=== PATIENT | female | born 1960 | race Caucasian/White ===

== ENCOUNTER 2016-04-09 01:21 | Day surgery (SDC) | payer OTHER, MEDICARE ==
[~2016-04-09] VITALS: Ht 170.2 cm; Wt 100.0 kg
[~2016-04-09 01:21] MED LIST: ACYC200C PO; ALBU90AE IH; CARV12.52 PO; DOXE2.5C PO; FRSM80T PO; GILDESS FE PO; HYDR-3939 PO; KEN1O TOP; SODI650T PO; VARI1940 SQ; ZYL100 PO
[2016-04-09 07:04] LABS: BASOPHILS % (AUTO) 0.3 % (0-3); EOSINOPHILS % (AUTO) 6.6 % (0-5); MONOCYTES % (AUTO) 8.5 % (4-12); Mean Corpuscular Hemoglobin 30.5 pg (27.0-35.0); Mean Corpuscular Volume 96.1 fL (81-100); NEUTROPHILS % (AUTO) 72.1 % (40-74); Platelet Count 302 bil/L (150-400)
[2016-04-09 07:08] VITALS: BP 123/60; PULSE 76; RESP 18; O2SAT 97
[2016-04-09 07:27] LABS: INR 0.95 ratio
[2016-04-09] MEDS ORDERED: Heparin 1,000 Unit/1,000mL NS Premix IV ONE (08:07)
[2016-04-09] MEDS ORDERED: Heparin 1,000 Unit/mL 10 mL Inj ONE (08:07)
[2016-04-09] MEDS ORDERED: 0.9% Sodium Chloride 500 ML ONE (08:09)
[2016-04-09] MEDS ORDERED: Clindamycin Inj 900 MG in IV Premix 1 EACH IV ONE (08:25)
[2016-04-09] MEDS ORDERED: fentaNYL-PF 50 mCg/mL 2 mL Inj ONE (08:37)
[2016-04-09 09:45] VITALS: BP 126/66; PULSE 78
[2016-04-09 10:00] VITALS: BP 111/95; PULSE 75
[2016-04-09 10:15] VITALS: BP 121/64; PULSE 78
[2016-04-09 10:30] VITALS: BP 125/60; PULSE 75
[2016-04-09 10:45] VITALS: BP 119/54; PULSE 75
--- NOTE | 2016-04-09 14:04 | DRSVH ---
PROCEDURE: ARTERIO VENOUS FISTULOGRAM (PNL) INDICATIONS: Venous dilatation of the right upper extremity. TECHNIQUE: FLUOROSCOPY TIME: 3.9 minutes. 1. Conscious sedation for 60 minutes. 2. Fistulogram at the level of the SVC and reflux fistulogram at the arteriovenous anastomosis. 3. Angioplasty of a focal high-grade stenosis within the midportion of the venous outflow of the righ t upper extremity fistula. 4. Completion fistulogram. The indications, alternatives, benefits, risks, and complications of the procedure were explained to the patient. Informed written consent was obtained and placed in the chart. The patient was brought to the angiography suite, and conscious sedation was administered intravenously by long-term [facility], while continuous cardiorespiratory monitoring was performed. Maximum sterile barrier technique was employed per standard protocol, including hand hygiene, cap, ma sk, sterile gown and gloves, and 2% chlorhexidine. One percent lidocaine was used to anesthetize the skin over the area of interest. Using a micropuncture sheath, the venous outflow of the right upper extremity fistula was accessed in antegrade fashion. A fistulogram was performed in stations to the l evel of the SVC through the micropuncture sheath. With the tip in the axillary vein. The micropunctur e sheath was exchanged for a short 6 [place] sheath. Balloon angioplasty was performed first with a 6 mm x 4 pressure balloon, and subsequently with an 8 mm x 20 mm high-pressure balloon. Completion fist ulogram was performed. The sheath was removed, and hemostasis was achieved. COMPARISON: None. 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 Multiple large, ectatic collaterals are present throughout the right upper extremity. A focal high-grade stenosis is present within the midportion of the venous outflow. There is a focal r egion of poststenotic dilatation adjacent to this stenosis. The more central portion of the venous ou tflow demonstrate normal course and caliber. After balloon angioplasty of the focal high-grade stenos is, there is reduced opacification within some of the large venous collaterals. There is a mild to mo derate persistent stenosis in this region. IMPRESSION: 1. Status post angioplasty of a focal high-grade stenosis within the midportion of the venous outflow of the right upper extremity. Some residual stenosis remains. However, there is decreased filling of the large tortuous collaterals. If there is persistent ectasia of the right upper extremity veins co nsistent with venous congestion, repeat angioplasty is recommended in 1-2 months time. This finding was discussed with the patient at the time of the study and was left as a message on Dr. Armstrong's voice mail. Dictated by: Antonella Velasquez M.D. on 04/09/2016 at 13:53 Approved by: Antonella Velasquez M.D. on 04/09/2016 at 14:02
== END 2016-04-09 23:59 | disposition home or self-care (01) ==
LOC: SOUO 01:21
PROVIDERS: ATTEND Radiology Vascular & Interventional Radiology
DX: T82.858A Stenosis of other vascular prosthetic devices, implants and grafts, initial encounter (principal); Y83.2 Surgical operation with anastomosis, bypass or graft as the cause of abnormal reaction of the patient, or of later complication, without mention of misadventure at the time of the procedure; I87.8 Other specified disorders of veins; J45.20 Mild intermittent asthma, uncomplicated; I12.0 Hypertensive chronic kidney disease with stage 5 chronic kidney disease or end stage renal disease; N18.6 End stage renal disease; Z99.2 Dependence on renal dialysis; D64.9 Anemia, unspecified
CPT/HCPCS: 36415; 36902; 80048; 85025; 85610; 85730; 99152; 99153; C1725; C1769; J1644; J2250; J3010; Q9967